=== PATIENT | male | born 1955 | race Caucasian/White ===

== ENCOUNTER 2024-09-17 10:36 | Observation (INO) ==
--- NOTE | 2024-09-13 10:40 | Anesthesiology Consultation ---
Date of Service September 13, 2024 Assessment & Plan (1) Encounter for pre-operative examination: Chart Review Chart Review: Acceptable Risk for Surgery and Patient NOT seen in Pre Admission Testing - Discussed cardiac history and testing with Dr. Watson- patient can proceed as scheduled -Infectious Disease screening: Per PAT nursing assessment on 09/12/24. No known infectious disease contacts in past 10 days or current infectious disease symptoms. No recent travel outside the country. Patient seen by cardio 11/07/23= seen for CV evaluation. Patient reports moderate HOOKS with exertional chest discomfort. Episode of uncontrolled HTN two months ago that appears to be TIA. Patient with CAD s/p CABG with class II HOOKS and exertional chest discomfort. Nuclear stress test ordered. ECHO ordered. Recent TIA - will order Xarelto. 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 States this was discussed at last cardio appt in Apr 2024 and buzzsaw operator said that he did not need to get the nuclear stress test done; has mild HOOKS with 1FS but this is chronic; otherwise denies any angina or SOB with normal daily activities) History Surgery Operation Date: 09/17/24 13:35 Proposed Procedures p TURP (Transurethral Resection of Prostate) - José Puga, DO Height/Weight Height: 5 ft 9 in Weight: 104.326 kg Allergies Allergy/AdvReac Type Severity Reaction Status Date / Time codeine Allergy Mild Rash Verified 09/12/24 09:01 Medications Home Medications Medication Instructions Recorded Confirmed Last Taken ascorbic acid (vitamin C) 1,000 mg 2 g PO Q6H 08/07/24 09/12/24 Unknown tablet aspirin 81 mg capsule 81 mg PO DAILY 08/07/24 09/12/24 Unknown calcium 300 mg-D3 25 mcg-magnesium 1 tab PO DAILY 08/07/24 09/12/24 Unknown 66 mg-K2 37.5 mcg-herbal tablet (Alive Calcium-Vitamin D3-K2) chlorthalidone 15 mg tablet 12.5 mg PO QAM 08/07/24 09/12/24 Unknown coenzyme Q10 200 mg/gram oral 200 mg PO QAM 08/07/24 09/12/24 Unknown powder (H2Q CoQ10) evolocumab 420 mg/3.5 mL 140 mg subcut UD 08/07/24 09/12/24 Unknown subcutaneous wearable injector (Repatha Pushtronex) finasteride 5 mg tablet 5 mg PO QPM 08/07/24 09/12/24 Unknown lisinopril 40 mg tablet 40 mg PO QPM 08/07/24 09/12/24 Unknown lutein 20 mg capsule 20 mg PO QAM 08/07/24 09/12/24 Unknown magnesium 250 mg tablet 250 mg PO QPM 08/07/24 09/12/24 Unknown metoprolol tartrate 50 mg tablet 50 mg PO BID 08/07/24 09/12/24 Unknown multivitamin 1 tab PO DAILY 08/07/24 09/12/24 Unknown omega 2-bgv-vvp-fish oil 300 2 cap PO DAILY 08/07/24 09/12/24 Unknown mg-1,000 mg capsule,delayed release (Fish Oil) pantoprazole 40 mg tablet,delayed 40 mg PO QAM 08/07/24 09/12/24 Unknown release rosuvastatin 40 mg tablet 40 mg PO QPM 08/07/24 09/12/24 Unknown sildenafil 25 mg tablet 25 mg PO DAILY PRN Sexual Activity 08/07/24 09/12/24 Unknown tamsulosin 0.4 mg capsule 0.4 mg PO QPM 08/07/24 09/12/24 Unknown nitrofurantoin 100 mg PO Q12H 7 days #14 caps 09/12/24 Unknown monohydrate/macrocrystals 100 mg capsule (Macrobid) Past Medical History Medical History (Updated 09/13/24 @ 11:23 by Julia Segura PA-C) Aortic stenosis Mild to moderate per 11/2023 ECHO BPH with urinary obstruction CAD (coronary artery disease) s/p 3 vessel CABG 2013 (LOWE to LAD, SVG to LCx, SVG to RCA) Ordonez catheter in place GERD (gastroesophageal reflux disease) Hx of sleep apnea cpap in past, after cabg - told no longer had sleep apnea Hyperlipidemia Hypertension TIA (transient ischemic attack) - Patient denies - states urinary obstruction from BPH caused significant BP increased - BP improved with ordonez catheter placement - Per cardio records- 07/2023- had episode of disorientation that lasted for a few minutes associated with uncontrolled HTN Past Family History Family History Father Diabetes Hypertension Heart disease Brother Hypertension Diabetes Mother Heart disease Hypertension Past Surgical History Surgical History History of esophagogastroduodenoscopy (EGD) Hx of cardiac catheterization (06/2014) [place], no [place]- was having chest pain, had CABG x 3 -- follows with [facility] (~ 6months) Hx of colonoscopy with polypectomy Hx of hernia repair (1983) Hx of tonsillectomy Hx of tooth extraction S/P CABG x 3 (06/2014) [place]- follows with cardio [facility] (~ 6months) Social History Smoking Status: Former smoker Do You Dip or Chew Tobacco: No Smoking End Date: 30 years ago - quit chewing tobacco 15 years ago Hx Alcohol Use: No Hx Substance Use: No substance use type: does not use Lab Results Anesthesia Preop Results Results Anesthesia Widget: WBC 8.94 K/ul (4.8-10.8) 09/11/24 Hgb 13.5 g/dl (14.0-18.0) L 09/11/24 Hct 40.1 % (42.0-52.0) L 09/11/24 Plt 229 K/uL (130-400) 09/11/24 Na 141 mmol/L (136-145) 09/11/24 K 4.1 mmol/L (3.5-5.1) 09/11/24 Cl 106 mmol/L (98-107) 09/11/24 CO2 27 mmol/L (21-32) 09/11/24 BUN 18 mg/dl (6-23) 09/11/24 Creat 1.27 mg/dl (0.6-1.4) 09/11/24 Glucose Level 101 mg/dl (70-99(Fasting)) H 09/11/24 Testing Laboratory Results 09/11/24= URINE CULTURE: E coli >100,000 CFU/ml (will leave results to surgeon's discretion with how to proceed) Electrocardiogram Date: 09/11/24 Findings: + SB @ (56bpm) Incomplete RBBB ST and T wave abnormality, consider lateral ischemia (EKG from 05/28/24 showed slight high lateral repolarization changes, consider ischemia (done at cardio appt)) Chest X-Ray Date: 09/11/24 Findings: + NAD Echocardiogram Date: 12/08/23 EF: 50-55% LV Function: normal Other Findings: + LVH (mild/concentric) and + diastolic dysfunction (Grade I ) Mild to moderate aortic stenosis (JEFFERY 1.28cm2; AV mean PG 18mmHg; AV peak velocity 2.92 m/s) Normal pulmonary artery pressures
[2024-09-17] MEDS ORDERED: oxyBUTYnin chloride 5 MG TAB PO PRN (10:55)
[2024-09-17] MEDS ORDERED: oxyCODONE/ACETAMINOPHEN 5mg/325mg TAB PO PRN (10:55)
--- NOTE | 2024-09-17 10:55 | History & Physical Bridge Note ---
Date of Service September 17, 2024 History & Physical Bridge Note I have examined the patient, reviewed the History & Physical and in the interval since the performance of the History & Physical I have noted the following changes of clinical significance: no changes noted
[2024-09-17] MEDS ORDERED: ePHEDrine sulfate 50 MG/ML AMP IV PRN (11:22)
[2024-09-17] MEDS ORDERED: ONDANSETRON INJ 2 MG/ML 2 ML VIAL IV PRN ×2 (11:22→19:49)
[2024-09-17] MEDS ORDERED: PROMETHAZINE HCL 6.25 MG in SODIUM CHLORIDE 0.9% 50 ML IV PRN (11:22)
[2024-09-17] MEDS ORDERED: ATROPINE SULFATE 0.1 MG/ML 10ML SYR IV PRN (11:22)
[2024-09-17] MEDS: LR 15ML/HR IV SCH (11:39)
--- NOTE | 2024-09-17 11:50 | Hospitalist Consultation ---
Date of Consultation September 17, 2024 Assessment & Plan (1) BPH with urinary obstruction: Elective TURP today, September 17, for urology, Dr. Puga. (2) CAD (coronary artery disease): History of coronary artery bypass grafting. Currently stable. Continue current medications postoperatively including aspirin, and metoprolol (3) Hypertension: Stable. Continue lisinopril and metoprolol postoperatively (4) Hyperlipidemia: Stable. Continue rosuvastatin postoperatively Plan The medical service will follow and manage the medical problems postoperatively until discharge History of Present Illness Attending Physician: José Puga, II, DO History of Present Illness 68-year-old white male with BPH with LUTS. He will undergo elective TURP procedure today by Dr. Puga of urology. My saw the patient preoperatively in the holding area and he is alert and oriented with stable vital signs. No complaints Allergies Allergy/AdvReac Type Severity Reaction Status Date / Time codeine Allergy Mild Rash Verified 09/17/24 11:03 Home Medications Medication Instructions Recorded Confirmed Type ascorbic acid (vitamin C) 1,000 mg 2 g PO Q6H 08/07/24 09/17/24 History tablet aspirin 81 mg capsule 81 mg PO DAILY 08/07/24 09/17/24 History calcium 300 mg-D3 25 mcg-magnesium 1 tab PO DAILY 08/07/24 09/17/24 History 66 mg-K2 37.5 mcg-herbal tablet (Alive Calcium-Vitamin D3-K2) chlorthalidone 15 mg tablet 12.5 mg PO QAM 08/07/24 09/17/24 History coenzyme Q10 200 mg/gram oral 200 mg PO QAM 08/07/24 09/17/24 History powder (H2Q CoQ10) evolocumab 420 mg/3.5 mL 140 mg subcut UD 08/07/24 09/17/24 History subcutaneous wearable injector (Repatha Pushtronex) finasteride 5 mg tablet 5 mg PO QPM 08/07/24 09/17/24 History lisinopril 40 mg tablet 40 mg PO QPM 08/07/24 09/17/24 History lutein 20 mg capsule 20 mg PO QAM 08/07/24 09/17/24 History magnesium 250 mg tablet 250 mg PO QPM 08/07/24 09/17/24 History metoprolol tartrate 50 mg tablet 50 mg PO BID 08/07/24 09/17/24 History multivitamin 1 tab PO DAILY 08/07/24 09/17/24 History omega 3-wtd-hmc-fish oil 300 2 cap PO DAILY 08/07/24 09/17/24 History mg-1,000 mg capsule,delayed release (Fish Oil) pantoprazole 40 mg tablet,delayed 40 mg PO QAM 08/07/24 09/17/24 History release rosuvastatin 40 mg tablet (Crestor) 40 mg PO QPM 08/07/24 09/17/24 History sildenafil 25 mg tablet (Viagra) 25 mg PO DAILY PRN Sexual Activity 08/07/24 09/17/24 History tamsulosin 0.4 mg capsule 0.4 mg PO QPM 08/07/24 09/17/24 History ciprofloxacin HCl 500 mg tablet 500 mg PO BID 7 days #14 tabs 09/13/24 09/17/24 Rx oxybutynin chloride 5 mg tablet 5 mg PO PRN Bladder Spasm #30 tabs 09/14/24 09/17/24 Rx Patient History Medical History (Updated 09/17/24 @ 11:49 by William Parada MD) TIA (transient ischemic attack) - Patient denies - states urinary obstruction from BPH caused significant BP increased - BP improved with ordonez catheter placement - Per cardio records- 07/2023- had episode of disorientation that lasted for a few minutes associated with uncontrolled HTN Aortic stenosis Mild to moderate per 11/2023 ECHO [address] catheter in place Hx of sleep apnea cpap in past, after cabg - told no longer had sleep apnea GERD (gastroesophageal reflux disease) BPH with urinary obstruction Hypertension Hyperlipidemia CAD (coronary artery disease) s/p 3 vessel CABG 2013 (LOWE to LAD, SVG to LCx, SVG to RCA) Surgical History History of esophagogastroduodenoscopy (EGD) Hx of colonoscopy with polypectomy Hx of tooth extraction Hx of tonsillectomy Hx of hernia repair (1983) Hx of cardiac catheterization (06/2014) Abigail, no [place]- was having chest pain, had CABG x 3 -- follows with cardio [facility] (~ 6months) S/P CABG x 3 (06/2014) Abigail- follows with cardio [facility] (~ 6months) Family History Father Diabetes Hypertension Heart disease Brother Hypertension Diabetes Mother Heart disease Hypertension Social History Smoking Status: Former smoker Tobacco Type: Cigarettes and Smokeless Tobacco (Dip or Chew) Smoking End Date: 30 years ago - quit chewing tobacco 15 years ago; Second Hand Exposure: No; Do You Dip or Chew Tobacco: No; Tobacco Cessation Education Requested by Patient: No Hx Alcohol Use: No Hx Substance Use: No Preferred Language: Setswana Communication Ability: Effective Procurement Manager Required: No Beliefs That Will Affect Care: None marital status: Current Living Situation: Spouse Other Information That Helps Us Care for You: No Feels Safe at Home: Yes Safety Concerns: Feels Safe At This Time Assistive Devices: Glasses and Hearing Aid - Bilateral Review of Systems Review of Systems: Constitutionalno fever or chills ENTno blurred vision, no double vision, no epistaxis, no sore throat Respiratoryno cough, no wheezing, no shortness of breath Cardiacno palpitations, no chest pain, no syncope Kishore nausea, vomiting, diarrhea, melena, hematochezia GUsymptoms of prostatism. No gross hematuria Musculoskeletalno joint pain, no muscle tenderness Skinno bruising, no rashes, no pruritus Neurono isolated weakness, no paresthesia, no weakness Psychno depression, no anxiety Physical Exam Physical Exam: General-alert and oriented x3, no fever, no chills HEENT-head atraumatic and normocephalic, pupils equal and reactive to light, extraocular muscles intact Neck-no lymphadenopathy or thyromegaly, trachea midline Chest-clear to auscultation. No rales, wheezing or rhonchi Cardiac-regular rate and rhythm, normal S1 and S2 Abdomen-normal bowel sounds, no hepatosplenomegaly Extremities-no cyanosis, clubbing, or edema Neuro-cranial nerves II through XII intact, motor and sensory function within normal limits, strength symmetrical, no focal deficits Psych-normal affect, normal mood Results & Data Results & Data Vital Signs (Past 12 Hours) Vital Signs Temp Pulse Resp BP Pulse Ox O2 Del Method 09/17/24 11:09 36.6 C 61 20 137/79 98 Room Air PG Care Time/CCT Total # of Minutes Spent Total Time Spent with Patient: Total time spent is greater than 50% in coordination of care (as documented) at patient's floor/unit and/or counseling patient: Coding Level of Care Code 55754 IN/OBS CONSULT LVL 3,45M Diagnoses BPH with urinary obstruction N40.1; N13.8 CAD (coronary artery disease) I25.10 Hypertension I10 Hyperlipidemia E78.5
[2024-09-17] MEDS ORDERED: fentaNYL citrate PF 100 MCG/2 ML VIAL ONE (12:09)
[2024-09-17] MEDS ORDERED: MIDAZOLAM HCL 1 MG/ML 2ML VIAL ONE (12:09)
[2024-09-17] MEDS ORDERED: DEXAMETHASONE SOD INJ 4 MG/ML VIAL ONE (12:09)
[2024-09-17] MEDS ORDERED: LIDOCAINE 2% 2 ML VIAL/AMP(20MG/ML) INFIL ONE (12:10)
[2024-09-17] MEDS ORDERED: ONDANSETRON INJ 2 MG/ML 2 ML VIAL ONE (12:10)
[2024-09-17] MEDS ORDERED: PROPOFOL IV EMULSION 10 MG/ML 20 ML VIAL IV ONE (12:10)
[2024-09-17] MEDS: CIPROFLOXACIN / D5W 400 MG/200 ML BAG IV SCH (13:12)
[2024-09-17] MEDS: ceFAZolin 2000MG 2,000 MG/15 ML SYR IV SCH ×2 (13:12→18:12)
[2024-09-17] MEDS ORDERED: ePHEDrine sulfate 50 MG/ML AMP ONE (13:23)
[2024-09-17] MEDS ORDERED: VASOPRESSIN 20 UNIT/ML VIAL ONE (13:49)
--- NOTE | 2024-09-17 14:48 | Operative Report ---
PG Post Operative Report Pre & Post Diagnosis Operation Date: 09/17/24 13:35 Pre-Op Diagnosis: Benign Prostatic Hyperplasia with Urinary Obstruction. Post-Op Diagnosis: Benign Prostatic Hyperplasia with Urinary Obstruction. I identified the patient and participated in the time-out.: Yes Procedure Operation Date: 09/17/24 13:35 Actual Procedures p Transurethral Resection of Prostate(Not Applicable) - José Puga DO Surgeon José Puga, II, DO Window Decorator None Estimated Blood Loss 10 Findings Consistent with Post-Op Diagnosis Extremely Large Prostate with obstruction. Large median lobe and lateral lobe. Specimens Prostate adenoma. Drains 24 [address] 3way Catheter Anesthesia Type General Complications none Disposition Disposition: Recovery Room Indications Patient with obstruction due to prostate enlargement. Prostate volume estimated over 180 cc. Risks and benefits discussed at length. Description of Procedure Patient was consented and brought back to the operating room. Patient was placed under anesthesia in the supine position and moved to the dorsal lithotomy position. Patient was prepped and draped in the regular sterile fashion. A time out was completed. A 30degree Cystoscope was placed into the bladder and the entire bladder was examined. The UO's were identified as well as the bladder neck, trigone, dome, and the other important landmarks. The prostatic urethra and large lobes/adenoma was assessed and the veru and bladder neck identified and area/size was assessed. The resection scope was placed and the fine bipolar loop was selected. Starting at the 5 and 7 o'clock positions, a channel was created from bladder neck to the veru. Starting at 1 and 11:00 to the lateral lobes were then resected down to capsule fibers. A massive amount of prostate was resected due to the extremely large lateral lobes. The Specimen was removed and sent for analysis. The resection bed and any bleeding areas were fulgurated/cauterized and the entire area inspected. All bleeding was controlled. The bladder was inspected a final time. The bladder was emptied and irrigated. All specimen and debris was removed. The scope was removed with the bladder partially full. A catheter was placed and balloon elevated. This was easily irrigated. The patient was cleaned, aroused from anesthesia, and transferred to the pacu in stable condition having tolerated the procedure well with no complications. I was present and participated in all aspects of the procedure. The patient will be monitored in the PACU until transferred. Plan to maintain catheter for approximately 1-1/2 to 2 weeks. Will follow-up for pathology review in office at that time. Plan to monitor overnight I attest to the content of the Intraoperative Record and any orders documented therein. Any exceptions are noted below.
[2024-09-17] MEDS: fentaNYL citrate PF 100 MCG/2 ML VIAL IV PRN (15:01)
[2024-09-17 15:12] LABS: Hematocrit (blood only) 39.1 % (42.0-52.0); Hemoglobin 12.9 g/dl (14.0-18.0); Mean Corpuscular Hemoglobin 29.9 pg (25.0-34.0); Mean Corpuscular Volume 90.5 fL (80.0-100.0); Mean Platelet Volume 12.4 fL (9.4-12.4); Platelet Count 197 K/uL (130-400); RDW Coefficient of Variation 14.6 % (11.5-14.5); RDW Standard Deviation 48.7 fL (36.4-46.3); Red Blood Count 4.32 M/uL (4.70-6.10); White Blood Count 14.99 K/ul (4.8-10.8)
[2024-09-17 15:28] LABS: Albumin Globulin Ratio 1.8 (0.9-2); Albumin Level 3.1 gm/dl (3.4-5.0); BUN Creatinine Ratio 13.2 (10-20); Bilirubin,Total 0.6 mg/dl (0.2-1.0); Calcium 7.9 mg/dl (8.6-10.3); Globulin 1.7 gm/dl (2.5-4.0); Potassium 3.5 mmol/L (3.5-5.1); Total Protein 4.8 gm/dl (6.0-8.3)
--- NOTE | 2024-09-17 15:36 | Anesthesiology Progress Note ---
Date of Service September 17, 2024 Anesthesia Post Procedure Vital Signs Vital Signs: Temp Pulse Resp BP BP Pulse Ox O2 Del Method 09/17/24 15:35 63 14 119/64 94 Nasal Cannula 09/17/24 15:20 36.4 C L 65 12 117/64 97 Nasal Cannula 09/17/24 15:10 69 12 119/60 96 Oxymask 09/17/24 15:00 65 15 104/58 L 96 Oxymask 09/17/24 14:54 36.1 C L 71 18 111/52 L 95 Oxymask 09/17/24 11:09 36.6 C 61 20 137/79 98 Room Air O2 Flow Rate 09/17/24 15:35 2 09/17/24 15:20 2 09/17/24 15:10 3 09/17/24 15:00 6 09/17/24 14:54 6 09/17/24 11:09 Pain Intensity Penis: Pain Intensity: 3 Transfer of Care Handoff Completed per policy Notes Mental Status: alert / awake / arousable and participated in evaluation Patient Amnestic to Procedure: Yes Nausea / Vomiting: adequately controlled Pain: adequately controlled Airway Patency, RR, SpO2: stable & adequate BP & HR: stable & adequate Hydration State: stable & adequate Anesthetic Complications: no major complications apparent and Pt Satisfied with anesthetic care
[2024-09-17] MEDS: DOCUSATE SODIUM 100 MG CAP PO SCH (19:37)
[2024-09-17] MEDS: MoRPHine SULFATE 2 MG/ML CARP IV PRN (19:37)
--- NOTE | 2024-09-18 09:34 | Urology Progress Note ---
Date of Service September 18, 2024 Assessment & Plan (1) BPH with urinary obstruction: Plan - Pt POD#1 s/p TURP with Dr. Puga - Medicine team consulted postoperatively for management of comorbidities, appreciate assistance - Pt doing well, progressing as expected - Afebrile and hemodynamically stable - Labs reviewed - WBC 12.64, Hemoglobin 12.7, Creatinine 1.34. - Tolerating PO diet - 3 way Rock catheter intact, patent and draining clear urine with CBI on slow - CBI clamped @0800- will reassess later this AM - Maintain Rock catheter - Encourage ambulation - Anticipate home with Rock catheter later today presuming urine appropriate and he continues to progress as expected - Patient reassessed - Urine remains clear off CBI - He has ambulated without issue - No reported pain - Tolerating diet - Discussed with medicine team - OK for d/c from their standpoint - Patient is stable for discharge home today with Rock catheter - Discharge instructions were reviewed, all questions were answered - Appropriate postoperative follow-up appointment in place Admission and Anticipated Discharge Date Admission Date: September 17, 2024 Subjective Pt seen at bedside today Awake and resting in bed on arrival No acute distress Rock draining clear yellow urine with CBI on slow No reported pain Denies f/c/n/v Tolerating diet Ambulating without issue Review of Systems Constitutional: as per Subjective / HPI Genitourinary: + as per Subjective / HPI Physical Exam Constitutional: no acute distress Respiratory: no respiratory distress and no labored breathing Neurologic: moves all extremities and awake Psychiatric: A+Ox3, euthymic affect Genitourinary: Rock intact draining clear urine with CBI on slow Results & Data Vital Signs (Past 12 Hours) Vital Signs Temp Pulse Resp BP Pulse Ox O2 Del Method 09/18/24 07:30 36.9 C 76 16 139/75 92 Room Air 09/18/24 02:07 36.4 C L 77 14 118/73 93 Room Air 09/17/24 23:02 37 C 78 14 108/66 93 Room Air PG Care Time/CCT Total # of Minutes Spent Total Time Spent with Patient: Total time spent is greater than 50% in coordination of care (as documented) at patient's floor/unit and/or counseling patient: Coding Level of Care Code None Diagnoses BPH with urinary obstruction N40.1; N13.8
[2024-09-18 09:43] LABS: Hematocrit (blood only) 37.7 % (42.0-52.0); Hemoglobin 12.7 g/dl (14.0-18.0); Mean Corpuscular Hemoglobin 29.7 pg (25.0-34.0); Mean Corpuscular Hgb Conc 33.7 g/dL (32.0-36.0); Mean Corpuscular Volume 88.1 fL (80.0-100.0); Mean Platelet Volume 12.3 fL (9.4-12.4); Platelet Count 200 K/uL (130-400); RDW Coefficient of Variation 14.9 % (11.5-14.5); RDW Standard Deviation 47.6 fL (36.4-46.3); Red Blood Count 4.28 M/uL (4.70-6.10); White Blood Count 12.64 K/ul (4.8-10.8)
[2024-09-18 10:10] LABS: BUN Creatinine Ratio 11.2 (10-20); Calcium 8.8 mg/dl (8.6-10.3); Creatinine Clr Calc Pharmacy 61.9 ml/min; Potassium 3.3 mmol/L (3.5-5.1)
[2024-09-18] MEDS: POTASSIUM CHLORIDE CRTAB 20 MEQ TABCR PO STA (10:27)
--- NOTE | 2024-09-18 11:58 | Hospitalist Progress Note ---
Date of Service September 18, 2024 Assessment & Plan (1) BPH with urinary obstruction: Plan: Postoperative day #1. Rock catheter is in place with mild hematuria. Urology management. Probably home later today, September 18, with Rock catheter in place (2) CAD (coronary artery disease): Plan: History of coronary artery bypass grafting. Currently stable. Continue current medications postoperatively including aspirin, and metoprolol (3) Hypertension: Plan: Stable. Continue lisinopril and metoprolol postoperatively (4) Hyperlipidemia: Plan: Stable. Continue rosuvastatin postoperatively Plan Medically stable for discharge home today, September 18 Admission and Anticipated Discharge Date Admission Date: September 17, 2024 Subjective Alert and oriented. Medically stable. Primary service will discharge the patient today, September 18, with Rock catheter in place. Oral potassium replacement ordered. Postoperative day #1 after TURP procedure Review of Systems 2 Review of Systems: Constitutionalno fever or chills ENTno blurred vision, no double vision, no epistaxis, no sore throat Respiratoryno cough, no wheezing, no shortness of breath Cardiacno palpitations, no chest pain, no syncope Kishore nausea, vomiting, diarrhea, melena, hematochezia GUFoley catheter in place with mild appearing hematuria Musculoskeletalno joint pain, no muscle tenderness Skinno bruising, no rashes, no pruritus Neurono isolated weakness, no paresthesia, no weakness Psychno depression, no anxiety Physical Exam 2 Physical Exam: General-alert and oriented x3, no fever, no chills HEENT-head atraumatic and normocephalic, pupils equal and reactive to light, extraocular muscles intact Neck-no lymphadenopathy or thyromegaly, trachea midline Chest-clear to auscultation. No rales, wheezing or rhonchi Cardiac-regular rate and rhythm, normal S1 and S2 Abdomen-normal bowel sounds, no hepatosplenomegaly GUFoley catheter in place with mild appearing hematuria Extremities-no cyanosis, clubbing, or edema Neuro-cranial nerves II through XII intact, motor and sensory function within normal limits, strength symmetrical, no focal deficits Psych-normal affect, normal mood Results & Data Results & Data Vital Signs (Past 12 Hours) Vital Signs Temp Pulse Resp BP Pulse Ox O2 Del Method 09/18/24 07:30 36.9 C 76 16 139/75 92 Room Air 09/18/24 02:07 36.4 C L 77 14 118/73 93 Room Air Laboratory Results 09/18/24 09:17 09/18/24 09:17 PG Care Time/CCT Total # of Minutes Spent Total Time Spent with Patient: Total time spent is greater than 50% in coordination of care (as documented) at patient's floor/unit and/or counseling patient: Coding Level of Care Code 49268 SUB INP/OBS CARE 2/35MIN Diagnoses BPH with urinary obstruction N40.1; N13.8 CAD (coronary artery disease) I25.10 Hypertension I10 Hyperlipidemia E78.5
--- NOTE | 2024-09-18 12:02 | Discharge Summary ---
Date of Service September 18, 2024 Admission HPI Per Admitting Provider 68-year-old male with a history of BPH with urinary obstruction/LUTS who presented for transurethral resection of the prostate Admission Exam Per Admitting Provider General: Alert in no acute distress. HEENT: Normocephalic Atraumatic. Inspection normal. Psychologic: Normal affect. Respiratory: Nonlabored. Cardiovascular: No tachycardia Skin: [place] and Dry. Principal Diagnosis BPH with urinary obstruction/LUTS Discharge Exam Constitutional well developed and well nourished; no acute distress Respiratory normal respiratory effort; no respiratory distress and no labored breathing Musculoskeletal Head/Neck/Chest: normocephalic Skin no rashes, warm and dry Neurologic moves all extremities and awake Psychiatric A+Ox3, euthymic affect Genitourinary Rock intact draining clear yellow urine Discharge Data Allergies Allergy/AdvReac Type Severity Reaction Status Date / Time codeine Allergy Mild Rash Verified 09/17/24 11:03 Consultations 09/17/24 10:57 Consult Hospitalist Routine Procedures Performed Operation Date: 09/17/24 13:35 Actual Procedures p Transurethral Resection of Prostate(Not Applicable) - José Puga, Hospital Course (1) BPH with urinary obstruction: Plan - Pt POD#1 s/p TURP with Dr. Puga - Medicine team consulted postoperatively for management of comorbidities, appreciate assistance - Pt doing well, progressing as expected - Afebrile and hemodynamically stable - Labs reviewed - WBC 12.64, Hemoglobin 12.7, Creatinine 1.34. - Tolerating PO diet - 3 way Rock catheter intact, patent and draining clear urine with CBI on slow - CBI clamped @0800- will reassess later this AM - Maintain Rock catheter - Encourage ambulation - Anticipate home with Rock catheter later today presuming urine appropriate and he continues to progress as expected - Patient reassessed - Urine remains clear off CBI - He has ambulated without issue - No reported pain - Tolerating diet - Discussed with medicine team - OK for d/c from their standpoint - Patient is stable for discharge home today with Rock catheter - Discharge instructions were reviewed, all questions were answered - Appropriate postoperative follow-up appointment in place Total Time Total Time Spent Total Time Spent (In Minutes): 15 Discharge Plan Discharge Items Patient Disposition: Home - Self-Care Reason For Visit: BPH WITH OBS Discharge Diagnosis: BPH Condition on Discharge: Good Activity: Per Instructions section Lifting: Wait until after follow-up appointment Bathing Comment: OK to shower. No tub baths or soaks. Sexual Activity: Wait until after follow-up appointment Exercise/Sports: Wait until after follow-up appointment Driving/Machine Use: Do not drive if taking prescription pain medication Non-emergency contact: Surgeon and Urologist Call non-emergency contact if: you have any medication questions, your symptoms worsen, your pain is not controlled and you have a fever Follow-up/Referrals: José Puga DO [Physician] - 09/26/24 8:15 am Shiva Silveira DO [Primary Care Provider] - Diet: Regular and Heart Healthy Addtl Attending Provider Instructions: Please take all medications as prescribed and keep all follow-ups as scheduled. Please call our office at [phone] with any questions, concerns or need to reschedule appointments for any reason. We are happy to assist you. Please complete course of antibiotic (ciprofloxacin) as previously prescribed. You are scheduled for catheter removal and pathology review with Dr. Puga on 09/26/2024 at 8:15 AM. Tips for your recovery at home: Dont be alarmed by brownish or reddish blood or clots in your urine. This is a result of the procedure. This may occur off and on for weeks to months after the procedure but should continue to improve. Drink plenty of fluids during the day (enough to keep your urine very light colored). This will help keep a healthy flow of urine. Do not lift >25 lbs until your followup Avoid constipation. Please use a stool softener (Colace) for the first two weeks after your procedure if needed Be sure to finish the antibiotics as prescribed. If you go home with a catheter, please wash tubing where it enters your body twice daily with mild soap (Dove or Dial). Once your catheter is removed, expect some blood in your urine and some burning when you urinate. You should have an appointment to have this removed, if you do not please call our office to arrange. When to call [facility] at [phone]: Your urine contains heavy blood clots or your catheter stops draining You are constantly leaking urine Fever of 101F or higher, chills, nausea, or vomiting Your pain is not relieved with medication Pending Studies at Discharge: Yes Stand-Alone Forms: My [facility], Smoking Cessation Medications and DC Order Prescriptions: Continued ciprofloxacin HCl 500 mg tablet 500 mg PO BID 7 Days Qty: 14 0RF oxybutynin chloride 5 mg tablet 5 mg PO PRN Qty: 30 0RF Rx Instructions: Take one tab as needed for bladder spasms Repatha Pushtronex 420 mg/3.5 mL wearable injector 140 mg subcut UD Rx Instructions: twice monthly metoprolol tartrate 50 mg tablet 50 mg PO BID rosuvastatin [Crestor] 40 mg tablet 40 mg PO QPM pantoprazole 40 mg tablet,delayed release (DR/EC) 40 mg PO QAM tamsulosin 0.4 mg capsule 0.4 mg PO QPM finasteride 5 mg tablet 5 mg PO QPM sildenafil [Viagra] 25 mg tablet 25 mg PO DAILY PRN (Reason: Sexual Activity) Rx Instructions: administer 30 minutes to 4 hours before activity lisinopril 40 mg tablet 40 mg PO QPM chlorthalidone 15 mg tablet 12.5 mg PO QAM magnesium 250 mg tablet 250 mg PO QPM Alive Calcium-Vitamin D3-K2 300 mg-25 mcg- 66 mg-37.5 mcg tablet 1 tab PO DAILY H2Q CoQ10 200 mg/gram powder 200 mg PO QAM lutein 20 mg capsule 20 mg PO QAM Rx Instructions: give with meal/snack omega 2-izl-crb-fish oil [Fish Oil] 300-1,000 mg capsule,delayed release(DR/EC) 2 cap PO DAILY aspirin 81 mg capsule 81 mg PO DAILY ascorbic acid (vitamin C) 1,000 mg tablet 2 g PO Q6H multivitamin Tablet 1 tab PO DAILY Discharge Orders: Discharge Order (Routine); Ordered 09/18/24 Ordered By: Mila Arenas/Other Patient Handouts: TURP Home Recovery, Urinary Catheter Bag Empty Clean, Indwelling Urinary Catheter Dc, Leg Bag Care Dc Admission Data Admit Date/Time: 09/17/24 10:55 Attending Provider: José Puga Admit Provider: José Puga Primary Care Provider: Shiva Silveira Other Providers: Inocencio Durán; Phillip Cintron; William Parada; Main Manzano; Servando Barragan; Ladan Patel; Kisha Pulido; Sandrita Jaime; Jamila Liu; Rj Valles; Maria Guadalupe Mcknight; Sunny Cartagena; Phillip Beard; Wai Elliott; Tyler Avilez; Paz Baig; Kinga Syed; Shelli Najera; Brianne Frazier; Brooklyn Galaviz; Julieta Gunn; Yamil Rodriguez; Rafi Murillo; Martha Braswell; Francisca Rivas; Nydia Rivera; Omar Torres; Padmini Rm; William Lyles; Main Ramírez; Erin Villalpando; Jeannine Anderson; Sonya Avila; Floyd Hawkins; Delfino Rubin; Joe Praedes; Melvin Grande; Daysi Hernandez; Francisco Diego; Charu Myers Other Interventions: Discharge Summary Assessment (RN) Last Done: 09/18/24 11:56 Coding Level of Care Code 77464 IN/OBS DISCH 30 MIN/LESS Diagnoses BPH with urinary obstruction N40.1; N13.8
== END 2024-09-18 12:25 | disposition home or self-care (01) ==
LOC: 3N 10:36 → ASU 10:36